=== PATIENT | male | born 1985 | race Caucasian/White ===

== ENCOUNTER → 2016-09-16 | Outpatient (CLI) | payer OTHER ==
[2016-09-16 17:21] LABS: HEMOGLOBIN 15.8 gm/dl (14.0-17.5); RED BLOOD COUNT 5.3 M/UL (4.20-5.50); WHITE BLOOD COUNT 9.4 K/UL (4.5-11.0)
[2016-09-16 17:47] LABS: BUN/CREATININE RATIO 14 (0-10)
== END ==
LOC: LAB 16:57
PROVIDERS: Family Medicine
DX: Z00.00 Encounter for general adult medical examination without abnormal findings (principal); E78.5 Hyperlipidemia, unspecified; E55.9 Vitamin D deficiency, unspecified; B35.1 Tinea unguium; H53.9 Unspecified visual disturbance
CPT/HCPCS: 36415; 80053; 80061; 84439; 84443; 85027

== ENCOUNTER 2016-12-14 08:09 | Emergency (ER) | payer SELFPAY | END 2016-12-14 10:05 | disposition home or self-care (01) | LOC: ER1 08:09 | DX: T15.02XA Foreign body in cornea, left eye, initial encounter (principal); T15.01XA Foreign body in cornea, right eye, initial encounter; X58.XXXA Exposure to other specified factors, initial encounter | CPT/HCPCS: 65220; 99283 ==